=== PATIENT | male | born 1935 | race Caucasian/White ===

== ENCOUNTER 2017-05-21 23:41 | Emergency (ER) | payer MEDICARE ==
[2017-05-21 23:41] VITALS: BMI 22.8
[2017-05-21 23:53] VITALS: TEMP 97.6
[2017-05-22] MEDS ORDERED: Labetalol 5 mg/ml Inj 20ML IV STA (00:33)
[2017-05-22] MEDS ORDERED: Labetalol 25mg/5ml Syringe ONE (00:36)
[2017-05-22 00:41] LABS: LYMPH # 1.8 K/uL (1.0-4.3); MONO # 0.5 K/uL (0.0-0.8)
--- NOTE | 2017-05-22 00:43 | C.PDOC ---
History Of Present Illness Patient is a 81 y/o male who presents to the ED BIB ambulance with a complaint of a headache. Patient describes pain as 5/10; denies nausea, vomiting, or syncopal episode. Patient also has an elevated BP of 210/82. Denies any other pain at this time. Chief Complaint (Nursing): Headache History Per: Patient History/Exam Limitations: no limitations Onset/Duration Of Symptoms: Hrs Current Symptoms Are (Timing): Still Present Recent travel outside of the [place]: No Past Medical History Reviewed: Historical Data, Nursing Documentation, Vital Signs Vital Signs: Last Vital Signs Temp 97.6 F 05/22/17 01:39 Pulse 68 05/22/17 01:39 Resp 14 05/22/17 01:39 BP 152/62 H 05/22/17 01:39 Pulse Ox 98 05/22/17 02:00 - Medical History PMH: Anemia, CHF, COPD (Questionable), HTN, Peripheral Edema (currently has lower bilateral ext edema +2 pitting), Chronic Kidney Disease Denies: HIV (denies) - [facility] Procedures ASSISTANCE WITH RESPIRATORY VENTILATION, 24-96 HRS, CPAP (02/03/16) EXCISION OF ESOPHAGOGASTRIC JUNCTION, ENDO, DIAGN (01/05/16) EXCISION OF STOMACH, ENDO, DIAGN (01/05/16) INTRODUCTION OF OTHER THERAPEUTIC SUBSTANCE INTO UP GI, ENDO (01/05/16) TRANSFUSE NONAUT RED BLOOD CELLS IN PERIPH VEIN, PERC (01/05/16) ULTRASONOGRAPHY OF RIGHT AND LEFT HEART (01/05/16) Family History: States: Unknown Family Hx - Social History Hx Alcohol Use: No Hx Substance Use: No - Immunization History Hx Tetanus Toxoid Vaccination: No Hx Influenza Vaccination: No Review Of Systems Constitutional: Negative for: Fever, Chills Cardiovascular: Negative for: Chest Pain, Palpitations Respiratory: Negative for: Shortness of Breath Gastrointestinal: Negative for: Nausea, Vomiting, Diarrhea Neurological: Positive for: Headache (5/10 pain. ) Physical Exam - Physical Exam Appears: Well, Non-toxic, No Acute Distress Skin: Normal Color, Warm, Dry Head: Atraumatic, Normacephalic Oral Mucosa: Moist Chest: Symmetrical Cardiovascular: Rhythm Regular, No Murmur Respiratory: Normal Breath Sounds, No Rales, No Rhonchi, No Wheezing Gastrointestinal/Abdominal: Soft, No Tenderness Extremity: Normal ROM (x4) Neurological/Psych: Oriented x3, Normal Speech, Normal Cognition, Other (No focal deficits.) ED Course And Treatment - Laboratory Results Result Diagrams: 05/22/17 00:38 05/22/17 00:38 ECG: Interpreted By Me, Viewed By Me ECG Rhythm: Sinus Rhythm ECG Interpretation: No Acute Changes Interpretation Of ECG: NSR, LVH with J-pt. changes, no acute ST-T changes, abnormal tracings Rate From EC O2 Sat by Pulse Oximetry: 98 (Room air ) Pulse Ox Interpretation: Normal - CT Scan/US Head Other Rad Studies (CT/US): Interpreted By Me, Read By Radiologist CT/US Interpretation: IMPRESSION: Atrophy and small vessel disease, no bleed. Progress Note: CT Head, EKG, UA, and blood work ordered; Trandate administered. - Physician Consult Information Time Consulting Physician Contacted: 01:37 Physician Contacted: Nikolay Larsen Disposition Discussed With : Nikolay Larsen Doctor Will See Patient In The: Office Counseled Patient/Family Regarding: Studies Performed, Diagnosis - Disposition Referrals: Nikolay Larsen MD [Medical Doctor] - Disposition: HOME/ ROUTINE Disposition Time: 02:15 Condition: STABLE Additional Instructions: to see Dr. Larsen at [facility] this morning. Prescriptions: Sodium Polystyrene Sulfonate [kayeXALATE] 15 gm PO BID #2 bottle Instructions: Hyperkalemia (DC), Hypertension (DC), Impaired Kidney Function ( ED) Forms: [facility] ([facility]) - POA Present On Arrival: None - Clinical Impression Clinical Impression: Hypertension, Renal insufficiency, Hyperkalemia - Scribe Statement The provider has reviewed the documentation as recorded by the Scribcampbell Velasquez All medical record entries made by the Anuragibe were at my direction and personally dictated by me. I have reviewed the chart and agree that the record accurately reflects my personal performance of the history, physical exam, medical decision making, and the department course for this patient. I have also personally directed, reviewed, and agree with the discharge instructions and disposition.
[2017-05-22 00:50] LABS: BASO % 0.3 % (0.0-2.0); EOS # 0.3 K/uL (0.0-0.7); EOS % 3.6 % (0.0-4.0); HEMATOCRIT 42.4 % (35.0-51.0); MEAN CELL VOLUME 67.4 fL (80.0-94.0); MEAN CORPUSCULAR HEMOGLOBIN 21.5 pg (27.0-31.0); MEAN CORPUSCULAR HGB CONC 31.8 g/dL (33.0-37.0); MEAN PLATELET VOLUME 9.3 fL (7.2-11.7); MONO % 6.5 % (0.0-10.0); NRBC % 0.2 % (0.0-2.0); PLATELET COUNT 101 K/uL (130-400); RED CELL DISTRIBUTION WIDTH 20.4 % (11.5-14.5); WHITE BLOOD COUNT 7.2 K/uL (4.8-10.8)
[2017-05-22 00:53] LABS: ALB/GLOB RATIO 1.3 (1.0-2.1); ALKALINE PHOSPHATASE 76 U/L (38-126); ALT/SGPT 21 U/L (21-72); AST/SGOT 15 U/L (17-59); BILIRUBIN,TOTAL 1.7 mg/dL (0.2-1.3); BLOOD UREA NITROGEN 51 mg/dL (9-20); CALCIUM 8.5 mg/dl (8.6-10.4); CARBON DIOXIDE 21 mmol/L (22-30); CHLORIDE 102 mmol/L (98-107); GFR AFRICAN-AMERICAN 32; GLUCOSE,RANDOM 91 mg/dL (75-110); POTASSIUM 5.6 mmol/L (3.6-5.2); SODIUM 140 mmol/L (132-148); TOTAL PROTEIN 7.5 g/dL (6.3-8.3)
[2017-05-22] MEDS ORDERED: Sod Polystyrene Sulf 15 gm/60 ml Oral Susp PO ONE (01:13)
[2017-05-22 01:41] LABS: EOSINOPHIL 5 % (0-4); NEUTROPHIL 75 % (50-75); NUCLEATED RED BLOOD CELL 1 % (0-0); TOTAL CELLS COUNTED 100
[2017-05-22] MEDS ORDERED: Sod Polystyrene Sulf 15 gm/60 ml Oral Susp ONE (01:48)
[2017-05-22 01:50] VITALS: O2SAT 98
--- NOTE | 2017-05-22 01:59 | CT ---
EXAM: CT Head Without Intravenous Contrast EXAM DATE/TIME: 05/22/2017 12:35 AM CLINICAL HISTORY: 81 years old, male; Pain and signs and symptoms; Other: Hbp; Headache; Additional info: Headache/ high bld pressure TECHNIQUE: Axial computed tomography images of the head/brain without intravenous contrast. All CT scans at this facility use one or more dose reduction techniques, viz.: automated exposure control; ma/kV adjustment per patient size (including targeted exams where dose is matched to indication; i.e. head); or iterative reconstruction technique. COMPARISON: There are no prior studies for comparison. FINDINGS: Brain: There is dilatation of sulci gyri and ventricles. There is no midline shift. There is decreased attenuation in periventricular white matter. There are no focal masses. There are no focal hemorrhages. Edmonds-white differentiation is visualized. Ventricles: See above. Bones: Cranial vault is intact. Soft tissues: unremarkable Sinuses: There is no acute sinusitis. There are retention cysts/polyps in the maxillary sinuses. Ears and mastoids: Middle ears and mastoids are unremarkable. Orbits: There are no acute orbital abnormalities. IMPRESSION: Atrophy and small vessel disease, no bleed
[2017-05-22 02:03] VITALS: BP 152/62; PULSE 68; RESP 14
--- NOTE | 2017-05-25 17:25 | CARD ---
APPROVED REPORT EKG Measurement Heart [id number] MN [id number] [id number] <Conclusion> Normal sinus rhythm Left ventricular hypertrophy with repolarization abnormality Abnormal ECG
== END 2017-05-22 02:17 | disposition home or self-care (01) ==
LOC: C.ER 23:41
DX: E87.5 Hyperkalemia (principal); I10 Essential (primary) hypertension; N28.9 Disorder of kidney and ureter, unspecified

== ENCOUNTER 2019-02-02 08:49 | Outpatient (CLI) | payer MEDICARE | END 2019-02-02 08:50 | disposition home or self-care (01) | LOC: C.CARD 08:49 | DX: R01.1 Cardiac murmur, unspecified (principal) ==